=== PATIENT | female | born 2000 | race African-American/Black ===

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

== ENCOUNTER 2019-03-01 18:12 | Emergency (ER) | payer MEDICAID ==
[~2019-03-01] VITALS: Ht 157.5 cm; Wt 63.5 kg
--- NOTE | 2019-03-01 18:42 | NUR ---
ED Nurse Note: pt walked in c/o lower back pain w/ nausea and vomiting for past three days. pt denies any other sx, no active n/v at this time. will cont monitor. pt states she is not sure whether she is or not, urine specimen obtained.
[2019-03-01 18:50] VITALS: BP 123/79
--- NOTE | 2019-03-01 18:58 | Emergency Room Report ---
History of Present Illness General Chief Complaint: Vomiting Source: Patient (Nataliia Mccann) Present Illness HPI 18 YO Female presents to the ED w. Multiple complaints 1) N/V x 3 days. Denies fevers, chills, recent travel or ill contacts with similar symptoms. Pt. Denies abdominal pain/tenderness. Pt. denies constipation. She reports one slightly loose BM today. Denies blood in the vomit or stool. Patient denies headache, dizziness, chest pain, palpitations, changes in vision, weakness, sudden onset of a ZAFAR or recent injury. Denies taking any medications. She is suspicious of . 2) Low back pain, intermittent x 1 week 08/26 in severity. Described as cramping without radiation. Pt. denies trauma or fall. She denies recent spinal procedures, Hx of cancer, or hx of back issues/ pain in the past. Denies numbness tingling or loss of sensation or gross motor movements of the extremities, incontinence of bowel or bladder. Pt. reports bending over at times will exacerbate her LBP. She reports difficulty finding comfortable positions. She denies dysuria, hematuria or urinary frequency. She denies vaginal d/c, Hx or suspicion of STI, or recent UTI. (Nataliia Mccann) Allergies: Coded Allergies: SULFUR (Verified Allergy, Unknown, 03/01/19) Patient History Past Medical History: see triage record Past Surgical History: none Pertinent Family History: none Last Menstrual Period: 01/2019 Reviewed Nursing Documentation: PMH: Agreed; PSxH: Agreed (Nataliia Mccann) Nursing Documentation-PMH Past Medical History: No Stated History (Nataliia Mccann) Review of Systems All Other Systems: negative except mentioned in HPI (Nataliia Mccann) Physical Exam Vital Signs Date Time Temp Pulse Resp B/P (MAP) Pulse Ox O2 Delivery O2 Flow Rate FiO2 03/01/19 18:18 99.1 104 18 123/79 (94) 96 Room Air Sp02 EP Interpretation: reviewed, normal General Appearance: no apparent distress, alert, GCS 15, non-toxic Head: normocephalic, atraumatic Eyes: bilateral eye normal inspection, bilateral eye PERRL ENT: hearing grossly normal, normal voice Neck: full range of motion Respiratory: chest non-tender, lungs clear, normal breath sounds, speaking full sentences Cardiovascular #1: regular rate, rhythm Gastrointestinal: normal bowel sounds, non tender, soft, non-distended, no guarding Genitourinary: normal inspection, no CVA tenderness Musculoskeletal: normal range of motion, gait/station normal, tender - TTP to the lumbar paraspinal musculature, no bony midline spinous process tenderness. No palpable step offs, no visible obvious deformities. Pt. with FROM , pain upon full flexion. PT. ambulatory without assistance. Neurologic: alert, motor strength/tone normal, oriented x3, sensory intact, responsive, speech normal, grossly normal Psychiatric: judgement/insight normal Skin: normal color, normal inspection (Nataliia Mccann) Medical Decision Making PA Attestation Dr. Bustillo Is my supervising Physician whom patient management has been discussed with. (Nataliia Mccann) Diagnostic Impression: Primary Impression: Low back pain Qualified Codes: M54.5 - Low back pain Additional Impression: Nausea vomiting and diarrhea ER Course 18 YO Female presents to the ED w. Multiple complaints 1) N/V x 3 days. Denies fevers, chills, recent travel or ill contacts with similar symptoms. Pt. Denies abdominal pain/tenderness. Pt. denies constipation. She reports one slightly loose BM today. Denies blood in the vomit or stool. Patient denies headache, dizziness, chest pain, palpitations, changes in vision, weakness, sudden onset of a ZAFAR or recent injury. Denies taking any medications. She is suspicious of . 2) Low back pain, intermittent x 1 week 6/10 in severity. Described as cramping without radiation. Pt. denies trauma or fall. She denies recent spinal procedures, Hx of cancer, or hx of back issues/ pain in the past. Denies numbness tingling or loss of sensation or gross motor movements of the extremities, incontinence of bowel or bladder. Pt. reports bending over at times will exacerbate her LBP. She reports difficulty finding comfortable positions. She denies dysuria, hematuria or urinary frequency. She denies vaginal d/c, Hx or suspicion of STI, or recent UTI. Ddx considered but are not limited to GE, colitis, acute appendicitis, SBO, Cyclical Vomiting secondary to THC, * , Sciatica, renal calculi, UTI just to name a few. Vital signs: pt. is afebrile H&PE are most consistent with GE most likely viral in etiology, no evidence to suggest acute abdomen on physical exam. ORDERS: -None required at this time, the dx is clinical. -Urine Hcg: Negative -UA: WNL ED INTERVENTIONS: -Tylenol PO -Zofran PO -I do not identify an emergent condition at this time. With current presentation , pt. is stable for close outpatient follow up and conservative treatment. D/ w pt. to return promptly to ED with worsening or new symptoms.- Pt. verbalizes' understanding and agreement with proposed treatment plan.proposed treatment plan. DISCHARGE: At this time pt. is stable for d/c to home. Will provide printed patient care instructions, and any necessary prescriptions. Care plan and follow up instructions have been discussed with the patient prior to discharge. Labs Test 03/01/19 18:34 Urine Color Pale yellow Urine Appearance Clear Urine pH 5 (4.5-8.0) Urine Specific [place] 1.020 (1.005-1.035) Urine Protein Negative (NEGATIVE) Urine Glucose (UA) Negative (NEGATIVE) Urine Ketones 4+ (NEGATIVE) Urine Blood Negative (NEGATIVE) Urine Nitrite Negative (NEGATIVE) Urine Bilirubin Negative (NEGATIVE) Urine Urobilinogen Normal MG/DL (0.0-1.0) Urine Leukocyte Esterase Negative (NEGATIVE) Urine HCG, Qualitative Negative (NEGATIVE) (Nataliia Mccann) Last Vital Signs Date Time Temp Pulse Resp B/P (MAP) Pulse Ox O2 Delivery O2 Flow Rate FiO2 03/01/19 18:18 99.1 104 18 123/79 (94) 96 Room Air (Natlaiia Mccann) Last Vital Signs Date Time Temp Pulse Resp B/P (MAP) Pulse Ox O2 Delivery O2 Flow Rate FiO2 03/01/19 19:35 98.6 99 18 128/82 97 Room Air (Jose Bustillo MD) Disposition: HOME, SELF-CARE Condition: Stable Scripts Ondansetron* (ZOFRAN*) 4 Mg Tablet 4 MG ORAL Q6H PRN for Nausea & Vomiting, #12 TAB Prov: Nataliia Mccann 03/01/19 Ibuprofen* (MOTRIN*) 600 Mg Tablet 600 MG ORAL THREE TIMES A DAY, #30 TAB 0 Refills Prov: Nataliia Mccann 03/01/19 Methocarbamol* (ROBAXIN-750*) 750 Mg Tablet 750 MG PO QID, #28 TAB 0 Refills Prov: Nataliia Mccann 03/01/19 Departure Forms: Return to Work Return to Work Date: Mar 02, 2019 Work Restrictions: No Heavy Lifting, No Prolonged Standing Other Restrictions: light duty. May return Sooner if Symptoms have resolved. Return to Full Activity: Mar 07, 2019 Patient Instructions: Back Pain, Adult, [id number], Diarrhea, Adult, Easy-to- Read, Nausea and Vomiting, Adult Additional Instructions: Take medications as directed. Follow up with a Primary Care Provider in 3-5 days, even if your symptoms have resolved. --Please review list of primary care clinics, if you do not already have a primary care provider Return sooner to ED if new symptoms occur, or current symptoms become worse. Do not drink alcohol, drive, or operate heavy machinery while taking Robaxin ( Muscle Relaxers) as this may cause drowsiness. - Please note that this Emergency Department Report was dictated using [employer]recreational therapist technology software, occasionally this can lead to erroneous entry secondary to interpretation by the dictation equipment. Nataliia Mccann Mar 01, 2019 18:58 Jose Bustillo MD Mar 02, 2019 06:01
--- NOTE | 2019-03-01 19:02 | NUR ---
ED Nurse Note: Received report from REJI Beal.
[2019-03-01 19:03] LABS: APPEARANCE,URINE CLEAR; BILIRUBIN, URINE NEGATIVE (NEGATIVE); COLOR,URINE PALE YELLOW; GLUCOSE, URINE (UA) NEGATIVE (NEGATIVE); KETONES,URINE 4+ (NEGATIVE); LEUKOCYTE ESTERASE ,URINE NEGATIVE (NEGATIVE); NITRITE,URINE NEGATIVE (NEGATIVE); PH,URINE 5 (4.5-8.0); PROTEIN,URINE NEGATIVE (NEGATIVE); UROBILINOGEN,URINE NORMAL MG/DL (0.0-1.0)
--- NOTE | 2019-03-01 19:05 | NUR ---
ED Nurse Note: PA at bedside.
[2019-03-01] MEDS ORDERED: ROBAXIN-750750 MG PO (19:31)
[2019-03-01] MEDS ORDERED: ZOFRAN4 M3 ORAL (19:31)
[2019-03-01] MEDS ORDERED: IBUPROFEN600 MG ORAL (19:31)
[2019-03-01 19:35] VITALS: BP 128/82
--- NOTE | 2019-03-01 19:35 | NUR ---
ER DISCHARGE NOTE: Pt is cleared to be d/c per ER provider, pt discharge and aftercare instruction provided w/ prescription, pt education done via discussion and handout, pt advised to follow up with pcp or return to ed if changes in condition, pt verbalized understanding, vss, ambulatory w/ steady gait, left w/ all belongings. ID band removed. Pt stable upon discharge.
== END 2019-03-01 19:35 | disposition home or self-care (01) ==
LOC: EMR 18:55
DX: R11.2 Nausea with vomiting, unspecified (principal); R19.7 Diarrhea, unspecified; M54.5 Low back pain
CPT/HCPCS: 81003; 81025; Z7502; 99283

== ENCOUNTER 2019-05-08 20:35 | Emergency (ER) | payer MEDICAID ==
[~2019-05-08] VITALS: Ht 157.5 cm; Wt 63.5 kg
[~2019-05-08 20:35] MED LIST: IBUPROFEN600 MG ORAL; ROBAXIN-750750 MG PO; ZOFRAN4 M3 ORAL
[2019-05-08 21:08] VITALS: BP 123/69
--- NOTE | 2019-05-08 21:11 | NUR ---
ED Nurse Note: PT WALKED IN TO ED CO NVD X3DAYS, PT DENIES PAIN, PT C/O INTERMITTENT DRY COUGH. PT DOES NOT PRESENT WITH FEVER. ERMD AT BEDSIDE. WILL CONTINUE TO MONITOR PATIENT
--- NOTE | 2019-05-08 21:14 | Emergency Room Report ---
History of Present Illness General Chief Complaint: Abdominal Pain Source: Patient Present Illness HPI 19-year-old female presents after increased generalized abdominal pain as well as low back pain and body aches. Increased nausea this with nonproductive cough. Denies any diarrhea. A prior history of migraine headaches. Reports having some intermittent episodes of nonproductive cough. Denies being . Allergies: Coded Allergies: SULFUR (Verified Allergy, Unknown, 03/01/19) Patient History Past Medical History: see triage record Last Menstrual Period: 04/26/2019 Now: No Reviewed Nursing Documentation: PMH: Agreed; PSxH: Agreed Nursing Documentation-PMH Past Medical History: No Stated History Review of Systems All Other Systems: negative except mentioned in HPI Physical Exam Vital Signs Date Time Temp Pulse Resp B/P (MAP) Pulse Ox O2 Delivery O2 Flow Rate FiO2 05/08/19 20:54 98.2 78 20 120/82 (95) 98 Room Air General Appearance: well appearing, no apparent distress, alert, GCS 15 Head: normocephalic, atraumatic ENT: hearing grossly normal, normal voice, TMs + canals normal, tonsillar swelling Neck: full range of motion, supple Respiratory: lungs clear, normal breath sounds, no respiratory distress, speaking full sentences Cardiovascular #1: normal inspection, regular rate, rhythm, no edema Gastrointestinal: normal inspection, normal bowel sounds, non tender, soft Genitourinary: no CVA tenderness Musculoskeletal: normal inspection, gait/station normal, swelling, normal range of motion, no calf tenderness Neurologic: alert, motor strength/tone normal, chief of police III-XII nml as tested, oriented x3, normal gait Psychiatric: normal inspection, mood/affect normal Skin: no rash Medical Decision Making Diagnostic Impression: Primary Impression: Viral gastroenteritis ER Course Patient presented for nausea and vomiting. Differential diagnosis include was not limited to viral gastroenteritis, , urinary tract infection, among others. Patient has a benign exam and does not appear to require any imaging or laboratory testing at this time. Patient urinalysis did not show any infection. The patient is advised to follow up with primary care doctor in 1- 2 days. Patient is advised to return if any worsening condition or if any changes in status that are concerning. This report is dictated with [employer] ordnance truck installation mechanic software which may occasionally lead to discrepancies related to use of this software. Labs Test 05/08/19 21:15 Urine Color Pale yellow Urine Appearance Clear Urine pH 6 (4.5-8.0) Urine Specific [place] 1.015 (1.005-1.035) Urine Protein Negative (NEGATIVE) Urine Glucose (UA) Negative (NEGATIVE) Urine Ketones Negative (NEGATIVE) Urine Blood 1+ (NEGATIVE) Urine Nitrite Negative (NEGATIVE) Urine Bilirubin Negative (NEGATIVE) Urine Urobilinogen Normal MG/DL (0.0-1.0) Urine Leukocyte Esterase Negative (NEGATIVE) Urine RBC 5-10 /HPF (0 - 2) Urine WBC 0-2 /HPF (0 - 2) Urine Squamous Epithelial Cells Few /LPF (NONE/OCC) Urine Bacteria Few /HPF (NONE) Urine HCG, Qualitative Negative (NEGATIVE) Last Vital Signs Date Time Temp Pulse Resp B/P (MAP) Pulse Ox O2 Delivery O2 Flow Rate FiO2 05/08/19 21:08 68 20 Room Air 05/08/19 21:08 98.3 123/69 98 Status: improved Disposition: HOME, SELF-CARE Condition: Stable Scripts Ondansetron Odt* (ZOFRAN ODT*) 4 Mg Tab.rapdis 4 MG BC EVERY 6 HOURS PRN for Nausea & Vomiting, #10 TAB 0 Refills Prov: Rafa Ziegler MD 05/08/19 Rafa Ziegler MD May 08, 2019 21:14
--- NOTE | 2019-05-08 21:15 | NUR ---
ED Nurse Note: URINE COLLECTED AND SENT TO LAB
[2019-05-08] MEDS ORDERED: ONDANSETRON ODT4 MG BC (21:16)
[2019-05-08 21:25] VITALS: BP 127/77
--- NOTE | 2019-05-08 21:25 | NUR ---
ER DISCHARGE NOTE: Patient is cleared to be discharged per ERMD, pt is aox4, on room air, with stable vital signs. pt was given dc and prescription instructions, pt was able to verbalize understanding, pt id band removed without complications. pt is able to ambulate with steady gait. pt took all belongings.
[2019-05-08 21:47] LABS: APPEARANCE,URINE CLEAR; BILIRUBIN, URINE NEGATIVE (NEGATIVE); COLOR,URINE PALE YELLOW; GLUCOSE, URINE (UA) NEGATIVE (NEGATIVE); KETONES,URINE NEGATIVE (NEGATIVE); LEUKOCYTE ESTERASE ,URINE NEGATIVE (NEGATIVE); NITRITE,URINE NEGATIVE (NEGATIVE); PH,URINE 6 (4.5-8.0); PROTEIN,URINE NEGATIVE (NEGATIVE); UROBILINOGEN,URINE NORMAL MG/DL (0.0-1.0)
== END 2019-05-08 21:25 | disposition home or self-care (01) ==
LOC: EMR 21:05
DX: A08.4 Viral intestinal infection, unspecified (principal); Z88.2 Allergy status to sulfonamides
CPT/HCPCS: 81003; 81025; Z7502; 99283